=== PATIENT | male | born 1985 | race Two or more races ===

== ENCOUNTER 2017-05-31 12:06 | Emergency (ER) | payer MEDICAID, OTHER ==
[~2017-05-31] VITALS: Ht 170.2 cm; Wt 68.0 kg
[2017-05-31 12:40] VITALS: BP 131/86
== END 2017-05-31 17:38 | disposition left against medical advice (07) ==
LOC: ER 12:06
DX: M79.641 Pain in right hand (principal); Z53.21 Procedure and treatment not carried out due to patient leaving prior to being seen by health care provider

== ENCOUNTER 2019-04-08 14:40 | Emergency (ER) | payer MEDICAID ==
[~2019-04-08] VITALS: Ht 182.9 cm; Wt 99.8 kg
[2019-04-08 19:51] VITALS: BP 120/68
== END 2019-04-08 20:17 | disposition home or self-care (01) ==
LOC: ER 14:44
DX: S80.211A Abrasion, right knee, initial encounter (principal); X58.XXXA Exposure to other specified factors, initial encounter; Y93.89 Activity, other specified; Y92.89 Other specified places as the place of occurrence of the external cause; Y99.8 Other external cause status

== ENCOUNTER 2019-04-13 16:31 | Emergency (ER) | payer MEDICAID ==
[~2019-04-13] VITALS: Ht 170.2 cm; Wt 62.6 kg
[2019-04-13 16:46] VITALS: BP 119/62
== END 2019-04-13 20:35 | disposition left against medical advice (07) ==
LOC: ER 16:39
DX: R22.30 Localized swelling, mass and lump, unspecified upper limb (principal); Z53.21 Procedure and treatment not carried out due to patient leaving prior to being seen by health care provider

== ENCOUNTER 2019-05-03 20:51 | Emergency (ER) | payer MEDICAID ==
[~2019-05-03] VITALS: Ht 167.6 cm; Wt 68.0 kg
[2019-05-04 01:39] LABS: Basophils # (auto) 0.1 uL; Basophils % (auto) 0.8 % (0.0-2.0); Eosinophils # (auto) 0.2 uL; Eosinophils % (auto) 2.2 % (0.0-7.0); Hematocrit 45.5 % (41.0-53.0); Hemoglobin 15.8 g/dL (13.5-17.5); Lymphocytes # (auto) 2.7 uL; Lymphocytes % (auto) 39.1 % (10.0-50.0); Mean Corpuscular Hemoglobin 31.9 pg (28.0-32.0); Mean Corpuscular Hgb Conc. 34.7 g/dL (32.0-36.0); Mean Corpuscular Volume 91.9 fL (80.0-100.0); Monocytes # (auto) 1.1 uL; Neutrophils # (auto) 2.9 uL; Neutrophils % (auto) 41.9 % (37.0-80.0); Nucleated Red Blood Cells % 0.1 %; Platelet Count (auto) 358 10^3/uL (140-450); Red Blood Cells 4.96 10^6/uL (4.5-5.90); Red Cell Distribution Width 13.5 % (11.8-14.3); White Blood Cell 6.8 10^3/uL (4.4-10.8)
[2019-05-04 01:57] LABS: Salicylate < 1.7 mg/dL (2.8-20.0)
[2019-05-04 01:58] LABS: Alanine Aminotransferase 44 U/L (16-61); Albumin 3.5 g/dL (3.4-5.0); Anion Gap 9 (5-15); Aspartate Aminotransferase 20 U/L (15-37); BUN/Creatinine Ratio 24.5; Blood Alcohol < 3.0 mg/dL (0-5); Blood Urea Nitrogen 27 mg/dL (7-18); Calcium 8.6 mg/dL (8.5-10.1); Carbon Dioxide 26 mmol/L (21-32); Chloride 102 mmol/L (98-107); GFR African American 100 mL/min; GFR Non-African American 83 mL/min; Glucose 125 mg/dL (74-106); Potassium 3.7 mmol/L (3.5-5.1); Sodium 137 mmol/L (136-145)
[2019-05-04 01:59] LABS: Acetaminophen < 2.0 ug/mL (10-30)
[2019-05-04 02:00] LABS: Alkaline Phosphatase 100 U/L (45-117); Bilirubin, Total 1.2 mg/dL (0.2-1.0); Total Protein 7.2 g/dL (6.4-8.2)
[2019-05-04] MEDS ORDERED: OLANZapine 5 MG TAB PO ONE ×2 (11:00→12:45)
[2019-05-04] MEDS: LORazepam 0.5 MG TAB PO SCH ×2 (11:00→22:00)
[2019-05-04] MEDS: risperiDONE 1 MG TAB PO SCH ×2 (11:00→22:00)
[2019-05-04] MEDS ORDERED: LORazepam 2MG/ML-1ML VIAL IM ONE (11:00)
[2019-05-04] MEDS ORDERED: risperiDONE 1 MG TAB PO ONE (12:45)
[2019-05-05] MEDS: LORazepam 0.5 MG TAB PO SCH ×2 (10:01→23:40)
[2019-05-05] MEDS: risperiDONE 1 MG TAB PO SCH ×2 (10:01→23:40)
[2019-05-05 14:17] LABS: Urine Bacteria MOD /hpf (None Seen); Urine Blood Negative /uL (Negative); Urine Sperm PRESENT /hpf (None Seen); Urine WBC 2 /hpf (0 - 3)
[2019-05-05 14:26] LABS: Alcohol, Urine < 3.0 mg/dL (0-5); Amphetamine Screen, Urine NEGATIVE (NEGATIVE); Barbiturate Scree,Urine NEGATIVE (NEGATIVE); Benzodiazephine Screen, Urine NEGATIVE (NEGATIVE); Cannabinoid Screen, Urine POSITIVE (NEGATIVE); Cocaine Screen, Urine NEGATIVE (NEGATIVE); Opiate Scree,Urine NEGATIVE (NEGATIVE); Phencyclidine Screen, Urine NEGATIVE (NEGATIVE)
[2019-05-06] MEDS: LORazepam 0.5 MG TAB PO SCH ×2 (10:25→21:07)
[2019-05-06] MEDS: risperiDONE 1 MG TAB PO SCH ×2 (10:26→21:07)
[2019-05-06] MEDS ORDERED: diphenhdrAMINE HCL 25 MG CAP PO ONE (19:15)
[2019-05-06] MEDS ORDERED: LORazepam 0.5 MG TAB PO ONE (20:45)
[2019-05-07 07:47] VITALS: BP 106/62
[2019-05-07] MEDS ORDERED: risperiDONE 1 MG TAB PO SCH (10:00)
[2019-05-07] MEDS ORDERED: LORazepam 0.5 MG TAB PO SCH (10:00)
== END 2019-05-07 11:41 | disposition home or self-care (01) ==
LOC: EDUNIT# 20:55 → ER 20:55 → EDBD 20:55 → ER 05-07 11:41
DX: F32.9 Major depressive disorder, single episode, unspecified (principal); F41.9 Anxiety disorder, unspecified; R45.851 Suicidal ideations; F20.9 Schizophrenia, unspecified; Z59.0 Homelessness
CPT/HCPCS: 36415; 80053; 80307; 80320; 80329; 81001; 85025; 96372; 99284; J2060

== ENCOUNTER → 2019-05-08 | Emergency (ER) | payer MEDICAID ==
[~2019-05-08] VITALS: Ht 170.2 cm; Wt 68.9 kg
[2019-05-08 14:11] VITALS: BP 136/70
== END | disposition left against medical advice (07) ==
LOC: ER 13:23
DX: R79.9 Abnormal finding of blood chemistry, unspecified (principal); Z53.21 Procedure and treatment not carried out due to patient leaving prior to being seen by health care provider